=== PATIENT | male | born 1970 | race Asian ===

== ENCOUNTER 2017-09-08 11:56 | Inpatient (IN) | payer OTHER ==
[~2017-09-08] VITALS: Ht 180.3 cm; Wt 81.2 kg
[2017-09-08 12:37] VITALS: BP 134/87
[2017-09-08] MEDS ORDERED: LIPITOR40 MG ORAL (12:39)
[2017-09-08] MEDS: HYDROcodone/Acetamin 10/325 tab ORAL PRN (15:49)
--- NOTE | 2017-09-08 15:50 | Diagnostic Imaging Report ---
Indication: Neck pain Technique: MRI examination of the cervical spine was performed in a 1.5 Kaylynn magnet. Sequences obtained include sagittal and axial T1 and T2 fast spin echo, and sagittal STIR. Comparison: none Findings: Bone marrow signal and alignment are normal. There is some motion movement artifact limiting evaluation especially the STIR sequence. There is some desiccation and narrowing of intervertebral discs throughout the cervical spine with loss of the central T2 hyperintensity normally seen. There is no disc herniation. There is no evidence of central canal stenosis. No significant neural foraminal stenosis is appreciated although there are likely some uncovertebral spurs particularly at C5-6 and C6-7. The spinal cord exhibits normal signal. IMPRESSION: Some degenerative disease of the cervical spine as described above. There is motion artifact limiting study.
[2017-09-08 16:00] VITALS: BP 129/77
--- NOTE | 2017-09-08 16:25 | Diagnostic Imaging Report ---
Indication: Back pain Technique: MRI examination of the Lumbar spine was performed in a 1.5 Kaylynn magnet. Sequences obtained include sagittal and axial T1 and T2 fast spin echo, and sagittal STIR. Comparison: none Findings: Bone marrow signal is slightly inhomogeneous. There is no bone marrow edema or evidence of a fracture. Narrowing and desiccation at L4-5 and L5-S1 discs are noted. The conus medullaris is seen at T12 and is normal in appearance. L1-2 is unremarkable. L2-3 is unremarkable. L3-4 is unremarkable. L4-5 shows narrowing of the intervertebral disc and a mild concentric disc bulge. Hypertrophied facets noted. There is no significant central stenosis. There is minimal foraminal stenosis. There is still perineural fat surrounding the exiting L4 nerve root L5-S1 shows mild concentric disc bulge and facet arthropathy. No central or lateral recess narrowing identified. There is transitional anatomy present at the lumbosacral junction. For the purposes of this examination, T12 is designated the last rib-bearing level. There are 5 lumbar vertebra. S1 is partially lumbarized. There is a 2.6 x 1.9 cm anterior right renal cyst. IMPRESSION: No acute injury. Mild degenerative disc disease in the lower lumbar spine and facet arthropathy as described above. Minimal neural foraminal stenosis at L4-5. Transitional anatomy lumbosacral junction as described above Incidental right renal cyst
--- NOTE | 2017-09-08 16:50 | Diagnostic Imaging Report ---
Indication: Neck Pain Findings: 3 views of the cervical spine were obtained. There is no acute fracture or malalignment identified. The bones are moderately osteopenic. Bridging spurs noted anteriorly at the vertebra of C2 on 3. Endplate spurs at C5-6 noted. The disks are relatively well-maintained. There is no soft tissue swelling. The open-mouth view is negative. IMPRESSION: No acute injury appreciated.
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
[2017-09-08 19:29] LABS: HEMATOCRIT 48.1 % (42.0-52.0); HEMOGLOBIN 15.8 G/DL (14.2-18.0); LYMPHOCYTES % (AUTO) 29.2 % (20.0-45.0); MEAN CORPUSCULAR VOLUME 95 FL (80-99); MONOCYTES % (AUTO) 6.3 % (1.0-10.0); NEUTROPHILS % (AUTO) 60.5 % (45.0-75.0); PLATELET COUNT 282 K/UL (150-450); RED BLOOD COUNT 5.04 M/UL (4.70-6.10); RED CELL DISTRIBUTION WIDTH 11.2 % (11.6-14.8); WHITE BLOOD COUNT 5.6 K/UL (4.8-10.8)
[2017-09-08 19:48] LABS: ALANINE AMINOTRANSFERASE 31 U/L (12-78); ALBUMIN 3.9 G/DL (3.4-5.0); ALBUMIN/GLOBULIN RATIO 1.1 (1.0-2.7); ALKALINE PHOSPHATASE 67 U/L (46-116); ANION GAP 8 mmol/L (5-15); ASPARTATE AMINO TRANSFERASE 19 U/L (15-37); BILIRUBIN,TOTAL 0.6 MG/DL (0.2-1.0); BLOOD UREA NITROGEN 15 mg/dL (7-18); CALCIUM 8.8 MG/DL (8.5-10.1); CARBON DIOXIDE 29 MMOL/L (21-32); CHLORIDE 104 MMOL/L (98-107); CREATININE 0.9 MG/DL (0.55-1.30); POTASSIUM 3.9 MMOL/L (3.5-5.1); SODIUM 141 MMOL/L (136-145)
[2017-09-08 20:04] VITALS: BP 128/86
[2017-09-09 00:16] VITALS: BP 127/86
[2017-09-09] MEDS: HYDROcodone/Acetamin 10/325 tab ORAL PRN (00:19)
[2017-09-09 04:53] VITALS: BP 122/77
[2017-09-09 08:00] VITALS: BP 139/78
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
[2017-09-09] MEDS ORDERED: IBUPROFEN600 MG ORAL (11:25)
[2017-09-09] MEDS ORDERED: TIZANIDINE HCL2 M2 PO (11:26)
[2017-09-09 12:00] VITALS: BP 127/78
== END 2017-09-09 12:50 | disposition home or self-care (01) | DRG 552 ==
LOC: 4W 11:56
DX: S33.5XXA Sprain of ligaments of lumbar spine, initial encounter (principal); V43.52XA Car driver injured in collision with other type car in traffic accident, initial encounter; Y92.411 Interstate highway as the place of occurrence of the external cause; M50.30 Other cervical disc degeneration, unspecified cervical region; M51.16 Intervertebral disc disorders with radiculopathy, lumbar region; M51.37 Other intervertebral disc degeneration, lumbosacral region; M54.2 Cervicalgia
CPT/HCPCS: 36415; 72040; 72141; 72148; 80053; 85025